=== PATIENT | male | born 1950 | race Caucasian/White ===

== ENCOUNTER 2018-02-23 15:52 | Emergency (ER) | payer OTHER ==
[~2018-02-23] VITALS: Ht 182.9 cm; Wt 65.5 kg
[2018-02-23] MEDS ORDERED: MOTRIN800 MG PO (17:38)
[2018-02-23] MEDS ORDERED: AUGMENTIN875 MG PO (17:38)
[2018-02-23 18:18] VITALS: BP 120/66
== END 2018-02-23 18:18 | disposition home or self-care (01) ==
LOC: EME 15:52
DX: S61.432A Puncture wound without foreign body of left hand, initial encounter (principal); S61.431A Puncture wound without foreign body of right hand, initial encounter; W54.0XXA Bitten by dog, initial encounter
CPT/HCPCS: 73130